=== PATIENT | female | born 1960 | race Caucasian/White ===

== ENCOUNTER 2017-05-14 16:03 | Emergency (ER) | payer SELFPAY ==
[2017-05-14 20:38] VITALS: BP 128/79
== END 2017-05-14 20:38 | disposition left against medical advice (07) ==
LOC: ED 16:03
DX: E87.6 Hypokalemia (principal); R53.81 Other malaise; D64.9 Anemia, unspecified; D61.818 Other pancytopenia; E86.0 Dehydration; K85.90 Acute pancreatitis without necrosis or infection, unspecified; F10.10 Alcohol abuse, uncomplicated; F15.90 Other stimulant use, unspecified, uncomplicated; R11.2 Nausea with vomiting, unspecified; Z53.21 Procedure and treatment not carried out due to patient leaving prior to being seen by health care provider
CPT/HCPCS: J7030

== ENCOUNTER → 2017-05-14 | Outpatient (REF) ==
[2017-05-14 20:38] VITALS: BP 128/79
== END ==
LOC: LAB 13:57
DX: Z01.89 Encounter for other specified special examinations (principal)

== ENCOUNTER → 2017-05-28 | Outpatient (REF) ==
[2017-05-14 20:38] VITALS: BP 128/79
== END ==
LOC: LAB 15:06
DX: R53.83 Other fatigue (principal)

== ENCOUNTER → 2017-06-11 | Outpatient (REF) ==
[2017-05-14 20:38] VITALS: BP 128/79
== END ==
LOC: LAB 14:52
DX: D64.9 Anemia, unspecified (principal)